=== PATIENT | female | born 2005 | race Hispanic/Latino ===

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

== ENCOUNTER 2023-03-31 09:24 | Emergency (ER) | payer OTHER ==
[~2023-03-31] VITALS: Ht 304.8 cm; Wt 41.3 kg
[~2023-03-31 09:24] MED LIST: HALOPERIDOL1 MG PO
[2023-03-31] MEDS ORDERED: ONDANSETRON ODT4 MG PO (09:39)
[2023-03-31] MEDS ORDERED: ONDANSETRON HCL 4 MG ORAL DISINTEGRATING TAB ONE (09:39)
[2023-03-31] MEDS ORDERED: ONDANSETRON HCL 4 MG ORAL DISINTEGRATING TAB PO ONE (09:45)
== END 2023-03-31 09:48 | disposition home or self-care (01) ==
LOC: ER 09:31
DX: R11.2 Nausea with vomiting, unspecified (principal); R19.7 Diarrhea, unspecified
CPT/HCPCS: 99282; Q0162

== ENCOUNTER 2023-04-02 15:34 | Emergency (ER) | payer OTHER ==
[~2023-04-02] VITALS: Ht 304.8 cm; Wt 41.3 kg
[~2023-04-02 15:34] MED LIST changes: +ONDANSETRON ODT4 MG PO
[2023-04-02 15:59] LABS: BASOPHILS % 0.1 % (0.0-1.0); HEMATOCRIT 43.8 % (34.2-44.1); HEMOGLOBIN 14.8 g/dL (12.0-16.0); LYMPHOCYTES # (AUTO) 1.4 (1.0-3.2); LYMPHOCYTES % 8.4 % (18.0-39.1); MEAN CORPUSCULAR HEMOGLOBIN 26.1 pg (28-32); MEAN CORPUSCULAR HGB CONC 33.8 g/dL (31-35); MEAN CORPUSCULAR VOLUME 77.1 fL (81-99); MONOCYTES # (AUTO) 1.4 (0.2-0.8); MONOCYTES % 8.2 % (4.4-11.3); NEUTROPHILS # (AUTO) 13.7 (2.1-6.9); PLATELET COUNT 470 x10e3/uL (140-360); RED BLOOD COUNT 5.68 x10e6/uL (3.6-5.1)
[2023-04-02] MEDS ORDERED: SODIUM CHLORIDE 0.9% 1000ML 1,000 ML IV ONE ×2 (16:00→16:45)
[2023-04-02 16:21] LABS: ALANINE AMINOTRANSFERASE 32 IU/L (0-55); ALBUMIN 5.6 g/dL (3.5-5.0); ALBUMIN/GLOBULIN RATIO 1.4 (0.8-2.0); ALKALINE PHOSPHATASE 91 IU/L (40-150); ANION GAP 27.5 mmol/L (8-16); BLOOD UREA NITROGEN 41 mg/dL (7-26); BUN/CREATININE RATIO 29 (6-25); CALCIUM 10.6 mg/dL (8.4-10.2); CARBON DIOXIDE 30 mmol/L (22-29); CHLORIDE 88 mmol/L (98-107); CREATININE, SERUM 1.39 mg/dL (0.57-1.11); GLUCOSE 152 mg/dL (74-118); LIPASE 5 U/L (8-78); POTASSIUM 3.5 mmol/L (3.5-5.1); SODIUM 142 mmol/L (136-145)
[2023-04-02] MEDS ORDERED: HALOPERIDOL LACTATE 5 MG/ML VIAL IM ONE (16:30)
[2023-04-02 16:37] LABS: CLARITY,URINE CLOUDY (CLEAR); COLOR,URINE YELLOW (YELLOW); KETONES,URINE 2+ (NEGATIVE); LEUKOCYTE ESTERASE ,URINE NEGATIVE (NEGATIVE); NITRITE,URINE NEGATIVE (NEGATIVE); PROTEIN,URINE DIPSTICK >=300 (NEGATIVE); URINE UROBILINOGEN 0.2 mg/dL (0.2 - 1)
[2023-04-02 16:47] LABS: BACTERIA,URINE MODERATE /HPF; TRANSITIONAL EPI CELLS,URINE MODERATE; WBC,URINE (MAN) 21-50 /HPF (0-5)
[2023-04-02 16:48] LABS: EPITHELIAL CELLS,URINE MODERATE /LPF; MUCUS,URINE MANY (RARE)
[2023-04-02] MEDS ORDERED: METOCLOPRAMIDE HCL 10 MG/2ML VIAL IV ONE (17:30)
[2023-04-02] MEDS ORDERED: METOCLOPRAMIDE10 MG PO (18:12)
[2023-04-02] MEDS ORDERED: CEPHALEXIN500 MG PO (18:12)
== END 2023-04-02 18:25 | disposition home or self-care (01) ==
LOC: ER 15:48
DX: E86.1 Hypovolemia (principal); N17.9 Acute kidney failure, unspecified; N39.0 Urinary tract infection, site not specified; R11.2 Nausea with vomiting, unspecified; K86.9 Disease of pancreas, unspecified; R94.31 Abnormal electrocardiogram [ECG] [EKG]
CPT/HCPCS: 36415; 80053; 81001; 83690; 84702; 85025; 93005; 99284; J2765; J7030; J1630

== ENCOUNTER 2023-04-23 15:42 | Emergency (ER) | payer OTHER ==
[~2023-04-23] VITALS: Ht 304.8 cm; Wt 41.3 kg
[~2023-04-23 15:42] MED LIST changes: +CEPHALEXIN500 MG PO; +METOCLOPRAMIDE10 MG PO
[2023-04-23 16:04] VITALS: O2SAT 97
[2023-04-23] MEDS ORDERED: PROMETHAZINE12.5 MG PR (16:17)
== END 2023-04-23 17:45 | disposition home or self-care (01) ==
LOC: ER 15:49
DX: R50.9 Fever, unspecified (principal); R11.2 Nausea with vomiting, unspecified
CPT/HCPCS: 99282